=== PATIENT | female | born 1955 | race African-American/Black ===

== ENCOUNTER 2019-06-04 11:56 | Emergency (ER) | payer OTHER ==
[~2019-06-04] VITALS: Ht 165.1 cm; Wt 74.8 kg
[~2019-06-04 11:56] MED LIST: AMBIEN 10 MG TA10 MG PO; BYETTA PEN 11 PENIN1 SUBQ; CYCLOBENZAPRINE10 MG PO; GLUCOPHAGE500 MG PO; GLUCOTROL5 MG PO; HYDROCHLOROTHIA25 M1 PO; KEFLEX500 MG PO; LISINOPRIL20 MG PO; NORVASC10 MG PO; PERCOCET 5-3251 EACH PO; TRICOR145 MG PO; ULTRAM 50MG TAB50 MG PO
[2019-06-04] MEDS ORDERED: MOBIC15 MG PO (14:17)
[2019-06-04 15:40] VITALS: BP 117/79
== END 2019-06-04 15:41 | disposition home or self-care (01) ==
LOC: ER 11:56
DX: S16.1XXA Strain of muscle, fascia and tendon at neck level, initial encounter (principal); M54.12 Radiculopathy, cervical region; M54.5 Low back pain; W18.39XA Other fall on same level, initial encounter; Y93.89 Activity, other specified; Y92.89 Other specified places as the place of occurrence of the external cause; Y99.8 Other external cause status